=== PATIENT | male | born 1960 | race Caucasian/White ===

== ENCOUNTER 2024-05-13 10:03 | Emergency (ER) | payer BC ==
[2024-05-13] MEDS ORDERED: Lidocaine 1% PF 5 ML VIAL ONE (10:22)
[2024-05-13] MEDS ORDERED: Boostrix 0.5 ML (Tdap) VIAL (>/=7 yrs of age) ONE (10:52)
[2024-05-13] MEDS ORDERED: Bacitracin 1 PK ONE (11:00)
== END 2024-05-13 11:09 | disposition home or self-care (01) ==
LOC: BURERS 10:03
DX: S61.211A Laceration without foreign body of left index finger without damage to nail, initial encounter (principal); W26.0XXA Contact with knife, initial encounter; Z23 Encounter for immunization
CPT/HCPCS: 12002; 90471; 90715